=== PATIENT | female | born 1965 | race Caucasian/White ===

== ENCOUNTER 2016-08-30 13:19 | Observation (INO) ==
--- NOTE | 2016-08-30 13:25 | Emergency Department Note ---
Disposition Forms: ED Satisfaction Letter General Adult HPI - General Chief complaint: ED Syncope Stated complaint: Syncopal episode Time Seen by Provider: 08/30/16 13:21 Nursing Notes Reviewed: Yes Vital Signs Reviewed: Yes - Related Data Home Medications Medication Instructions Recorded Confirmed Alprazolam [Xanax 0.25 MG Tablet] 0.25 mg PO DAILY 01/27/16 01/27/16 Levothyroxine [Synthroid] 50 mcg PO 0630 01/27/16 01/27/16 Allergies Allergy/AdvReac Type Severity Reaction Status Date / Time No Known Allergies Allergy Verified 01/27/16 11:41 Past Medical History - Past Medical History Surgical history: Reports: appendectomy, breast surgery, , hysterectomy Psychiatric history: Reports: no psych history - Social History Smoking Status: Never smoker Smokeless Tobacco Status: No Alcohol use: Reports: none Drug use: Reports: none Medical Decision Making - MDM Narrative Medical decision making narrative: I examined this patient and my medical decision-making was reviewed with the GLUE MAKER/PA/Advanced Practice Nurse/Resident Physician. I agree with the documented findings, disposition and treatment plan as described except to the extent set forth below. Patient was seen on arrival with EMS by Dr. Yang and myself, I agree with his evaluation and management plan, supervising care the patient notes today. Patient presents from the [facility]. She was there and while she was sitting down had a syncopal episode. She complains some issues with memory. No focal deficits here. No cardiac problems. Blood pressure was high when medics saw her initially. She also says she might have some problems of the thyroid in the past but no history of syncope. She has no slurring of her speech no difficulty with moving she is alert to person place and time GCS 15. We will do a workup on her, and most likely need admission concern for cardiac or neurologic causes of the syncope.
--- NOTE | 2016-08-30 13:39 | Emergency Department Note ---
Disposition Clinical Impression: Syncope Qualifiers: Syncope type: unspecified Qualified Code(s): R55 - Syncope and collapse Disposition: Admitted As Inpatient Condition: Undetermined Referrals: Cheyenne Elizalde, BROOKE [Primary Care Provider] - Forms: ED Satisfaction Letter Time of Disposition: 15:12 Syncope HPI - General Chief Complaint: ED Syncope Stated Complaint: Syncopal episode Time Seen by Provider: 08/30/16 13:21 Source: patient, EMS Mode of arrival: EMS Limitations: no limitations Nursing Notes Reviewed: Yes Vital Signs Reviewed: Yes - History of Present Illness HPI Narrative: 51-year-old female with history of anxiety arrives to [facility] emergency department after sitting in a chair during a hair appointment and having a syncopal episode. The patient was noted to be out for roughly 1-2 minutes. No active seizure like activity noted at that time. The patient says that she immediately woke back up and remembers the entire event. The patient does state that prior to the episode she was having periods of not remembering her normal activities. The patient denies any chest pain, difficulty breathing , unilateral leg swelling, previous episodes of syncope. Patient denies any other prodromal symptoms. The patient currently takes herbal medications but is unsure which she normally takes which she states is not her baseline. She is answering all questions are purposely with a GCS of 15. Pt Subjective Complaint: loss of consciousness Onset (ago): Just PATROL MAN Number of episodes: 1 Duration: minutes(s) (1-2) Witnessed: yes - by bystander Context: at rest Injuries Sustained Associated with Event: none Current Symptoms: back to baseline History: none Treatments prior to arrival: none - Related Data Home Medications Medication Instructions Recorded Confirmed Alprazolam [Xanax 0.25 MG Tablet] 0.25 mg PO TID PRN 01/27/16 08/30/16 Levothyroxine [Synthroid] 50 mcg PO 0630 01/27/16 08/30/16 Allergies Allergy/AdvReac Type Severity Reaction Status Date / Time No Known Allergies Allergy Verified 01/27/16 11:41 Review of Systems: Review of Systems Constitutional: Denies fevers, chills, night sweats HEENT: Denies headache, blurry vision, eye pain, tinnitus, vertigo, sore throat , neck or thyroid masses Respiratory: Denies cough, sputum change, hemoptysis, dyspnea Cardiac: Denies chest pain, pressure, palpitations, dyspnea on exertion, pedal edema Gastrointestinal: Denies abdominal pain, changes in bowel habits, vomiting, nausea, Genitourinary: Denies dysuria, hematuria, nocturia, change in frequency, urgency, incontinence Neurologic: Denies headaches, dizziness, syncope, focalized weakness, paraesthesias, weakness Musculoskeletal: Denies back pain, joint pain, myalgias All systems ED: reviewed and negative except as stated. Past Medical History - Past Medical History Attestation: Yes The following information was validated with the patient. Source: patient Medical history: Reports: no medical history Surgical history: Reports: appendectomy, breast surgery, , hysterectomy Psychiatric history: Reports: no psych history - Social History Smoking Status: Never smoker Smokeless Tobacco Status: No Alcohol use: Reports: none Drug use: Reports: none Physical Exam Physical Exam: General: Patient alert, no acute distress, not lethargic HEENT: Head normal inspection, atraumatic, PERRLA, oropharynx grossly intact and normal, trachea midline, no JVD Chest: Nontraumatic, nontender, normal chest rise CV: RRR with non rubs, gallops, grade 2 holosystolic murmur noted Respiratory: Lungs clear to auscultation bilaterally, no rales, rhonchi, wheezes. Abdomen: Normal inspection, Normal bowel sounds 4 quadrants, nontender to palpation : Patient deferred Extremities: Normal inspection, full range of motion, appropriate pulses, capillary refill under 2 seconds Neurological: Patient alert and oriented 3, cranial nerves II through XII grossly intact, GCS 15, no neurologic deficits noted, muscle strength 5 out of 5 bilaterally in upper and lower extremities, no sensation deficits. Skin: Warm, intact, no rashes noted - General Limitations: no limitations General appearance: alert, in no apparent distress Course - Reevaluation(s) Reevaluation #1: Patient accepted by Cailin Jc NP Time: 15:12 Vital Signs Temperature 97.1 F L 08/30/16 13:22 Pulse Rate 79 08/30/16 13:22 Respiratory Rate 18 08/30/16 13:22 Blood Pressure 160/105 08/30/16 13:22 O2 Sat by Pulse Oximetry 100 08/30/16 13:22 Temperature 97.1 F L 08/30/16 13:22 Pulse Rate 75 08/30/16 14:33 Respiratory Rate 16 08/30/16 14:33 Blood Pressure 170/84 08/30/16 14:33 O2 Sat by Pulse Oximetry 97 08/30/16 14:33 Oxygen Delivery Oxygen Delivery Room Air Syncope - MDM Narrative Medical decision making narrative: Patient's workup here in the emergency department demonstrates no acute findings. Given the patient's lack of history of previous syncope, and syncope at rest today, we will admit the patient to the hospital. The patient agrees to the plan. The patient does have a holosystolic murmur noted that his grade 2 , and she states that she was never told she had a murmur in the past. The patient continues to deny any other complaints and has had no further symptoms or episodes similar to earlier today. Patient agrees to plan. - Lab Data Result diagrams: 08/30/16 14:23 08/30/16 14:23 Lab Results 08/30/16 08/30/16 08/30/16 Range/Units 14:23 14:23 14:23 WBC 6.9 (4.3-11.1) K/mcL RBC 5.00 H (3.82-4.97) M/mcL Hgb 13.4 (11.5-15.4) g/dL Hct 41.0 (35.3-44.9) % MCV 82.0 L (83.0-100.0) fL MCH 26.8 L (28.0-33.3) pg MCHC 32.7 (31.6-35.5) g/dL RDW 13.3 (11.5-14.5) % Plt Count 186 (140-400) K/mcL MPV 9.9 (9.4-12.4) fL Immature Gran % 0.3 (0-4) % Seg Neutrophils % 77.4 % Lymphocytes % 16.9 % Monocytes % 4.9 % Eosinophils % 0.4 % Basophils % 0.1 % Neutrophils # 5.4 (1.6-8.9) K/mcL Lymphocytes # 1.2 (0.6-4.6) K/mcL Monocytes # 0.3 (0.0-1.3) K/mcL Eosinophils # 0.0 (0.0-0.6) K/mcL Basophils # 0.0 (0.0-0.2) K/mcL Sodium 140 (136-145) mEq/L Potassium 3.9 (3.5-4.5) mEq/L Chloride 106 (98-109) mEq/L Carbon Dioxide 19 (19-29) mEq/L BUN 14 (7-20) mg/dL Creatinine 0.77 (0.57-1.11) mg/dL Est GFR ( Amer) > 60 (> 60) Est GFR (Non-Af Amer) > 60 (> 60) BUN/Creatinine Ratio 18 (6-26) Glucose 109 H (70-99) mg/dL Calculated Osmolality 291 (280-300) Calcium 9.1 (8.6-10.8) mg/dL Troponin I 0.01 (0-0.03) ng/mL - EKG Data EKG attestation: Yes I reviewed and interpreted this EKG. EKG results narrative: Heart rate 77 bpm. MT interval 141 ms. QTC 412 ms. Normal axis. Normal sinus rhythm. No ST elevation or ST depression noted. No previous EKG on record. No acute changes noted.
[2016-08-30 14:30] LABS: Basophils % 0.1 %; Eosinophils % 0.4 %; Hemoglobin 13.4 g/dL (11.5-15.4); Immature Granulocytes % 0.3 % (0-4); Lymphocytes # 1.2 K/mcL (0.6-4.6); Lymphocytes % 16.9 %; Mean Corpuscular HGB Conc 32.7 g/dL (31.6-35.5); Mean Corpuscular Hemoglobin 26.8 pg (28.0-33.3); Mean Platelet Volume 9.9 fL (9.4-12.4); Monocytes # 0.3 K/mcL (0.0-1.3); Monocytes % 4.9 %; Neutrophils # 5.4 K/mcL (1.6-8.9); Platelet Count 186 K/mcL (140-400); Red Cell Distribution Width 13.3 % (11.5-14.5); Segmented Neutrophils % 77.4 %
[2016-08-30 14:43] LABS: BUN/Creatinine Ratio 18 (6-26); Blood Urea Nitrogen 14 mg/dL (7-20); Calcium 9.1 mg/dL (8.6-10.8); Carbon Dioxide 19 mEq/L (19-29); Chloride 106 mEq/L (98-109); Glucose 109 mg/dL (70-99); Osmolality,Calculated 291 (280-300); Potassium 3.9 mEq/L (3.5-4.5); Sodium 140 mEq/L (136-145); eGFR For African Americans > 60 (> 60); eGFR For Non-African Americans > 60 (> 60)
[2016-08-30] MEDS ORDERED: Naloxone 0.4 MG/ML INJ IVP PRN (16:32)
[2016-08-30] MEDS ORDERED: Acetaminophen 325 MG TABLET PO PRN (16:32)
--- NOTE | 2016-08-30 16:45 | Internal Med History&Physical ---
<Alfredo Cazares - Last Filed: 08/30/16 17:46> Date of Encounter: 08/30/16 Time of Encounter: 16:37 Assessment and Plan (1) Syncope Current visit: Yes Status: Acute Patient is a 51 year old female with history of varicose veins, hypothyroidism, and anxiety without known prior episodes of presncope/syncope who was brought in via EMS with syncopal episode of a few minutes duration that was witnessed and preceded by some difficulties with memory and dizziness. EKG revealed normal sinus rhythm, no st elevations or depressions, no t wave inversions. CXR revealed no acute cardiopulmonary processes. CT Head revealed no acute intracranial abnormalities. Physical exam by ED physicians revealed no neurological abnormal findings. CBC was essentially normal, Electrolytes were essentially normal, Troponin was 0.01 negative. Neuro exam normal Syncopal of unknown etiology. Differentials include, but not limited to TIA, medication misuse (Xanax), cardiac etiology Echocardiogram Carotid duplex imaging orthostatic vitals Neuro checks q2h Urine Drug Screen Regular diet. Hold home Xanax. May consider Brain MRI if neuro signs/symptoms. Qualifiers: Syncope type: unspecified Qualified Code(s): R55 - Syncope and collapse (2) Memory change Current visit: Yes Status: Chronic Patient reports memory issues since traumatic event in January 2015. Recommend Counseling and Neurocognitive evaluation as outpatient. (3) Hypertension Current visit: Yes Status: Chronic Patient with history of hypertension had elevated bp upon arrival to the ED, currently not on medication. Bp upon arrival was 160/105, pulse 79. Repeat bp was 150/76, pulse 72. PO hydralazine prn for elevated bp with systolic >160. Continue monitoring vitals. May consider starting bp medications for chronic disease management. Qualifiers: Hypertension type: essential hypertension Qualified Code(s): I10 - Essential (primary) hypertension (4) Anxiety Current visit: Yes Status: Chronic Hold Xanax Patient reports taking daily Xanax and extra dose as needed. OARRS reviewed and appropriate. Last refilled 07/17/16, tid prn. Prior refill 05/28/16. (5) Hypothyroidism Current visit: Yes Status: Chronic Continue home medication for chronic disease management. 25mcg levothyroxine qd Labs: TSH, T4, T3. Qualifiers: Hypothyroidism type: unspecified Qualified Code(s): E03.9 - Hypothyroidism , unspecified (6) DVT prophylaxis Current visit: Yes Status: Acute Heparin for dvt ppx. Internal Medicine - H&P: HPI Chief complaint: Syncope Admitted From: Emergency Dept History of present illness: Ms. Trejo is a 51 year old female with history of varicose veins, hypothyroidism , and anxiety who was brought in via EMS to [facility] ED after syncopal episode. Patient reports that she sitting down getting her hair cut when she started developing some issues remembering things and then developed some significant dizziness. Patient reports that she was told she passed out for 2-3 minutes during which time EMS was called. Patient remembers waking up to her hairdresser trying to wake her up. EMS reports no facial droops, slurring, or extremity weakness on initial exam, though bp was elevated. Patient denies previous episodes of syncope or presyncope. Denies poor hydration. Patient reports that she had continue troubles getting the right words to say and troubles remembering things until she arrived to the ED. Patient denies fevers , chills, sweats, headaches, changes in vision or hearing, nausea, vomiting, chest pain/pressure/heaviness, shortness of breath, abdominal pain, changes in bowels or bladder, weakness, or loss of sensation. Patient currently taking Xanax for anxiety (OARRS reviewed and appropriate), Levothyroxine 25mcg qd, and multivitamin herbal supplement. Patient is otherwise health and reports she plays tennis regularly and denies tobacco, alcohol, or illicit drug use. Past Med Surg Social Fam HX - Past Medical History Medical history: thyroid disease (hypo), other (varicose veins) Psychiatric history: anxiety - Past Surgical History Surgical History: appendectomy, breast surgery, , hysterectomy - Social History Smoking Status: Never smoker Smokeless Tobacco Status: No Alcohol use: none Drug use: none Current living situation: Home - Independent Activity Level: Independent ambulation Recent Out of Country Travel Within the Last 8 Weeks: No Exposure or Possible Exposure to Illness During Travel: No - Family History Mother Living Status: Hx Family Cardiac Disorders: No Hx Family Respiratory Disorders: No Hx Family Cancer: No Hx Family GI Disorders: No Hx Family Genitourinary Disorders: No Hx Family Endocrine Disorder: No Hx Family Musculoskeletal Disorders: No Hx Family Neuromuscular Disorders: No Hx Family Neurologic Disorders: No Hx Family HEENT Disorders: No Hx Family Autoimmune Disorders: No Hx Family Reproductive Disorders: No Hx Family Psychosocial Disorders: No Hx Family Medical Disorders: No Father Living Status: Hx Family Cardiac Disorders: No Hx Family Respiratory Disorders: No Hx Family Cancer: No Hx Family GI Disorders: No Hx Family Genitourinary Disorders: No Hx Family Endocrine Disorder: No Hx Family Musculoskeletal Disorders: No Hx Family Neuromuscular Disorders: No Hx Family Neurologic Disorders: No Hx Family HEENT Disorders: No Hx Family Autoimmune Disorders: No Hx Family Reproductive Disorders: No Hx Family Psychosocial Disorders: No Hx Family Medical Disorders: No Grandfather Living Status: Hx Family Neurologic Disorders: Yes (dementia) Internal Medicine - H&P: Meds Alprazolam [Xanax 0.25 MG Tablet] 0.25 mg PO TID PRN 01/27/16 [History] Levothyroxine [Synthroid] 50 mcg PO 0630 01/27/16 [History] Allergies No Known Allergies Allergy (Verified 01/27/16 11:41) All Systems PM: A 10-system review of systems was performed and is negative for pertinent findings except as documented above in the HPI. - Constitutional Constitutional: as per HPI, no chills, no fever(s), no falls, no lethargy, no weakness - EENT Eyes: as per HPI Ears: as per HPI Nose, mouth and throat: as per HPI, no dry mouth, no dysphagia, no neck pain, no sore throat - Cardiovascular Cardiovascular ROS IM: as per HPI, no chest pain, no diaphoresis, no dyspnea, no edema, no irregular heart rhythm, no lightheadedness, no orthopnea, no palpitations, no syncope - Respiratory Respiratory: as per HPI, no cough, no dyspnea, no pain on inspiration - Gastrointestinal Gastrointestinal: as per HPI, no abdominal pain, no change in bowel habits, no constipation, no diarrhea, no dysphagia, no heartburn, no nausea, no vomiting - Genitourinary Genitourinary: as per HPI, no dysuria, no flank pain - Musculoskeletal Musculoskeletal ROS IM: as per HPI, no back pain, no neck pain, no numbness, no stiffness, no tingling - Integumentary Integumentary IM: as per HPI, no new lesions, no rash, no unusual bruising - Neurological Neurological ROS: as per HPI, dizziness, memory loss, no abnormal gait, no abnormal hearing, no abnormal speech, no disequilibrium, no focal weakness, no frequent falls, no headache(s), no lack of coordination, no loss of vision, no numbness, no tingling, no weakness - Psychiatric Psychiatric: as per HPI, anxiety - Endocrine Endocrine IM: as per HPI, no fatigue, no flushing, no polydipsia, no polyuria - Hematologic/Lymphatic Hematologic/Lymphatic: as per HPI, no easy bleeding, no easy bruising - Allergic/Immunologic Allergic/Immunologic: as per HPI - Constitutional Vitals: Temp Pulse Resp BP Pulse Ox 97.1 F L 75 16 168/94 97 08/30/16 13:22 08/30/16 14:33 08/30/16 16:13 08/30/16 16:13 08/30/16 14:33 General appearance: Present: A&O X 3, pleasant, no acute distress, answers questions appropriately - Head Head exam: Present: atraumatic, normal inspection, normocephalic - Eye Eye exam: Present: EOMI, normal appearance, PERRL - ENT ENT exam: Present: mucous membranes moist, normal exam, normal external ear exam , normal oropharynx - Neck Neck exam general surgery: Present: full ROM, normal inspection, supple, trachea midline. Absent: tenderness - Respiratory Respiratory exam: Present: CTAB. Absent: rales, rhonchi, wheezes - Cardiovascular Cardiovascular exam: Present: RRR, +S1, +S2. Absent: diastolic murmur, JVD, systolic murmur - GI/Abdominal GI/Abdominal exam: Present: normal bowel sounds, soft. Absent: distended, guarding, tenderness - Extremities Exam Extremities exam: Present: full ROM, normal capillary refill, normal inspection , warm, radial pulses palpable and symetrical. Absent: pedal edema, tenderness - Neurological Exam Neurological exam: Present: alert, CN II-XII intact, normal gait, oriented X3, reflexes normal, no focal deficits, strengths equal and symetr throughout. Absent: motor sensory deficit, facial droop, speech deficit - Expanded Neurological Exam Neurological exam expanded: Absent: expressive aphasia, receptive aphasia Patient oriented to: Present: person, place, time Speech: Present: fluid speech Cranial Nerves: EOM's intact PM: Normal Cerebellar function: finger to nose: Normal, heel to brooke: Normal, Romberg: Normal Sensory exam: LE 2 point discrimination: Normal, lower extremity light touch: Normal, UE 2 point discrimination: Normal, upper extremity light touch: Normal Neuro motor strength exam: LUE: 5, RUE: 5, LLE: 5, RLE: 5 DTR: bicep (L): 2+, bicep (R): 2+, patellar (L): 2+, patellar (R): 2+, tricep (L ): 2+, tricep (R): 2+ Coma Scale Eye Opening: Spontaneous Coma Scale Motor Response: Obeys Commands Coma Scale Verbal Response: Oriented Coma Scale Total: 15 - Psychiatric Psychiatric exam: Present: normal affect, normal mood - Skin Skin exam: Present: dry, intact, normal color, warm. Absent: diaphoretic, erythema, pallor Internal Med - H&P Results - Labs CBC & Chem 7: 08/30/16 14:23 08/30/16 14:23 <Ayala Martinez - Last Filed: 08/30/16 18:55> Internal Medicine - H&P: HPI History of present illness: Ms. Trejo is a 51 year old female All Systems PM: A 10-system review of systems was performed and is negative for pertinent findings except as documented above in the HPI. - Constitutional Vitals: Temp Pulse Resp BP Pulse Ox 99.8 F H 72 14 150/76 98 08/30/16 16:48 08/30/16 16:48 08/30/16 16:48 08/30/16 16:48 08/30/16 16:48 Internal Med - H&P Results - Labs CBC & Chem 7: 08/30/16 14:23 08/30/16 14:23 - Attending Attestation I examined this patient and reviewed laboratory, imaging and all diagnostic data. My medical decision-making was reviewed with Alfredo Reveles - Resident Physician. I agree with the documented findings, disposition and treatment plan as described above.
[2016-08-30 17:13] LABS: Thyroid Stimulating Hormone 5.095 mcIU/mL (0.350-4.840); Triiodothyronine (T3) Free 3.45 pg/mL (1.71-3.71)
[2016-08-30] MEDS: *HR* Heparin 5,000 UNIT/ML VIAL SQ SCH (20:14)
[2016-08-30] MEDS: hydrALAZINE 25 MG TABLET PO SCH (20:15)
[2016-08-31 00:01] LABS: Amphetamine Screen,Urine Negative ng/mL (Cutoff=1000); Barbiturate Screen,Urine Negative ng/mL (Cutoff=200); Benzodiazepines Screen,Urine Positive ng/mL (Cutoff=200); Cannabinoid Screen,Urine Negative ng/mL (Cutoff = 50); Cocaine Screen,Urine Negative ng/mL (Cutoff= 300); Opiate Screen,Urine Negative ng/mL (Cutoff=300); Phencyclidine Screen,Urine Negative ng/mL (Cutoff=25)
[2016-08-31 00:14] LABS: Bilirubin,Urine Negative (Negative); Blood,Urine Negative (Negative); Clarity,Urine Clear (Clear); Color,Urine Yellow (Yellow); Glucose,Urine (UA) Normal (Normal); Ketones,Urine Trace mg/dL (Negative); Leukocyte Esterase,Urine Negative (Negative); Nitrite,Urine Negative (Negative); Protein,Urine Negative (Neg-Trace); Specific Gravity,Urine 1.027 (1.010-1.025); Urobilinogen,Urine Normal (Normal)
[2016-08-31] MEDS: hydrALAZINE 25 MG TABLET PO SCH ×4 (00:26→18:40)
[2016-08-31 03:54] LABS: Eosinophils % 0.2 %; Hematocrit 41.5 % (35.3-44.9); Hemoglobin 13.4 g/dL (11.5-15.4); Immature Granulocytes % 0.2 % (0-4); Lymphocytes # 1.6 K/mcL (0.6-4.6); Lymphocytes % 32.3 %; Mean Corpuscular HGB Conc 32.3 g/dL (31.6-35.5); Mean Corpuscular Hemoglobin 26.3 pg (28.0-33.3); Mean Corpuscular Volume 81.4 fL (83.0-100.0); Mean Platelet Volume 10.1 fL (9.4-12.4); Monocytes # 0.4 K/mcL (0.0-1.3); Monocytes % 7.6 %; Platelet Count 225 K/mcL (140-400); Red Cell Distribution Width 13.5 % (11.5-14.5); Segmented Neutrophils % 59.7 %
[2016-08-31 04:00] LABS: INR 1.2; Prothrombin Time 13.3 Seconds (9.4-12.1)
[2016-08-31 04:02] LABS: Activated Partial Thrombo Time 32.2 Seconds (26.0-36.0)
[2016-08-31 04:21] LABS: Alanine Aminotransferase 14 Units/L (0-55); Albumin 3.9 g/dL (3.5-5.0); Albumin/Globulin Ratio 1.1 (1.1-2.2); Alkaline Phosphatase 82 Units/L (38-126); Aspartate Amino Transferase 14 Units/L (5-34); BUN/Creatinine Ratio 17 (6-26); Bilirubin,Total 0.3 mg/dL (0.2-1.2); Blood Urea Nitrogen 13 mg/dL (7-20); Calcium 9.5 mg/dL (8.6-10.8); Carbon Dioxide 25 mEq/L (19-29); Chloride 107 mEq/L (98-109); Globulin 3.6 g/dL (2.4-3.5); Glucose 89 mg/dL (70-99); Magnesium 2.2 mg/dL (1.6-2.6); Osmolality,Calculated 296 (280-300); Potassium 3.9 mEq/L (3.5-4.5); Sodium 143 mEq/L (136-145); Total Protein 7.5 g/dL (6.0-8.3); eGFR For African Americans > 60 (> 60); eGFR For Non-African Americans > 60 (> 60)
[2016-08-31] MEDS: *HR* Heparin 5,000 UNIT/ML VIAL SQ SCH ×2 (06:13→18:40)
--- NOTE | 2016-08-31 06:30 | Electrocardiograph Report ---
[facility] Test Date: 2016-08-30 Pat Name: Ashley Trejo Department: [id number] Room: 3B21 Gender: F Miller First: RACHEL : 1965 Requested By: Lane Skinner Order Number: [id number] Reading MD: Edgar Onofre DO Measurements Intervals Donald Rate: 77 P: 60 [place]: 141 QRS: -5 QRSD: 90 T: 19 QT: 381 QTc: 412 Interpretive Statements SINUS RHYTHM NONSPECIFIC T-WAVE ABNORMALITY Electronically Signed On 08-31-2016 6:28:54 EDT by Edgar Onofre DO
[2016-08-31] MEDS ORDERED: ALPRAZolam 0.25 MG TABLET PO ONE (06:32)
--- NOTE | 2016-08-31 08:26 | Internal Med Progress Note ---
<Alfredo Cazares - Last Filed: 08/31/16 15:09> Date of Encounter: 08/31/16 Time of Encounter: 08:26 - Assessment and plan (1) Syncope Current Visit: Yes Status: Acute Assessment and plan: Patient is a 51 year old female with history of varicose veins, hypothyroidism, and anxiety without known prior episodes of presncope/syncope who was brought in via EMS with syncopal episode of a few minutes duration that was witnessed and preceded by some difficulties with memory and dizziness. Patient denies dizziness or syncopal episodes overnight. EKG revealed normal sinus rhythm, no st elevations or depressions, no t wave inversions. CXR revealed no acute cardiopulmonary processes. CT Head revealed no acute intracranial abnormalities. Physical exam by ED physicians revealed no neurological abnormal findings. CBC was essentially normal, Electrolytes were essentially normal, Troponin was 0.01 negative, UDS positive for benzo (consistent with home med) Neuro exam normal TSH 5.095, Free T4 normal 1.17, Free T3 normal 3.45 Syncopal of unknown etiology. Differentials include, but not limited to TIA, medication misuse (Xanax), cardiac etiology, medication side effect (herbal supplements), anxiety Pending Echocardiogram Pending Carotid duplex imaging orthostatic vitals Regular diet. Hold home Xanax. May consider Brain MRI if neuro signs/symptoms. Qualifiers: Syncope type: unspecified Qualified Code(s): R55 - Syncope and collapse (2) Memory change Current Visit: Yes Status: Chronic Assessment and plan: Patient reports memory issues since traumatic event in January 2015. Recommend Counseling and Neurocognitive evaluation as outpatient (3) Hypertension Current Visit: Yes Status: Chronic Assessment and plan: Patient with history of hypertension had elevated bp upon arrival to the ED, currently not on medication. Bp controlled overnight, MAR reveals no administration of hydralazine. PO hydralazine prn for elevated bp with systolic >160. Continue monitoring vitals. Qualifiers: Hypertension type: essential hypertension Qualified Code(s): I10 - Essential (primary) hypertension (4) Anxiety Current Visit: Yes Status: Chronic Assessment and plan: Hold Xanax Patient reports taking daily Xanax and extra dose as needed, premedicate prior to large crowds and reports three pills prior to any airtravel. OARRS reviewed and appropriate. Last refilled 02/07/17, tid prn. Prior refill 05/28/16. (5) Hypothyroidism Current Visit: Yes Status: Chronic Assessment and plan: Continue home medication for chronic disease management. 25mcg levothyroxine qd TSH 5.095 (elevated), Free T4 1.17 (normal), Free T3 3.45 (normal) Qualifiers: Hypothyroidism type: unspecified Qualified Code(s): E03.9 - Hypothyroidism , unspecified (6) DVT prophylaxis Current Visit: Yes Status: Acute Assessment and plan: Heparin for dvt ppx. - Subjective Interval history: Patient reports that did well overnight without new complaints. Addition to HPI : Patient reports she has had two additional episodes of feeling ill, sick, dizzy, and almost about to pass out while sitting on the couch. She denies any chest pain or palpitations during those episodes. The patient has been taking tumeric and herbal multivitamin supplement for the past couple months, and reports since has had these episodes. Patient to have family member bring in the medication so we can review it. Patient denies fevers, chills, sweats, changes in vision or hearing, headaches, nausea, vomiting, chest pain, shortness of breath, abdominal pain, changes in bowels or bladder, weakness, or loss of sensation. - Constitutional Vitals: Temp Pulse Resp BP Pulse Ox 98.0 F 62 14 137/85 96 08/31/16 05:07 08/31/16 05:07 08/31/16 05:07 08/31/16 05:07 08/31/16 05:07 General appearance: Present: A&O X 3, pleasant, no acute distress, answers questions appropriately - Head Head exam: Present: atraumatic, normal inspection, normocephalic - Eye Eye exam: Present: normal appearance - ENT ENT exam: Present: mucous membranes moist, normal exam, normal external ear exam , normal oropharynx - Neck Neck exam general surgery: Present: normal inspection, supple, trachea midline - Respiratory Respiratory exam: Present: CTAB. Absent: rales, rhonchi, wheezes - Cardiovascular Cardiovascular exam: Present: RRR, +S1, +S2. Absent: diastolic murmur, JVD, systolic murmur - GI/Abdominal GI/Abdominal exam: Present: normal bowel sounds, soft. Absent: tenderness - Extremities Exam Extremities exam: Present: full ROM, normal inspection, warm. Absent: calf tenderness, pedal edema, tenderness - Neurological Exam Neurological exam: Present: alert, CN II-XII intact, normal gait, oriented X3, reflexes normal, no focal deficits, strengths equal and symetr throughout. Absent: motor sensory deficit, facial droop, speech deficit - Psychiatric Psychiatric exam: Present: anxious (anxious mood, tearful at time), normal affect - Skin Skin exam: Present: dry, intact, normal color, warm. Absent: diaphoretic, erythema, pallor Internal Medicine: Result - Labs CBC & Chem 7: 08/31/16 02:48 08/31/16 02:48 Labs: Short CBC 08/31/16 Range/Units 02:48 WBC 5.0 (4.3-11.1) K/mcL Hgb 13.4 (11.5-15.4) g/dL Hct 41.5 (35.3-44.9) % Plt Count 225 (140-400) K/mcL Neutrophils # 3.0 (1.6-8.9) K/mcL BMP 08/31/16 02:48 Sodium 143 Potassium 3.9 Chloride 107 Carbon Dioxide 25 BUN 13 Creatinine 0.76 Glucose 89 Calcium 9.5 Liver Function 08/31/16 Range/Units 02:48 Total Bilirubin 0.3 (0.2-1.2) mg/dL AST 14 (5-34) Units/L ALT 14 (0-55) Units/L Alkaline Phosphatase 82 (38-126) Units/L Albumin 3.9 (3.5-5.0) g/dL Urine 08/30/16 Range/Units 23:40 Urine Color Yellow (Yellow) Urine Clarity Clear (Clear) Urine pH 6.0 (5.0-8.0) pH Units Ur Specific [place] 1.027 H (1.010-1.025) Urine Protein Negative (Neg-Trace) mg/dL Urine Glucose (UA) Normal (Normal) mg/dL - ABG Interpretation ABG results: PT/INR, D-dimer PT 13.3 Seconds (9.4-12.1) H 08/31/16 02:48 Consult Discharge Plan - Plan Instructions: Syncope (DC), Hypothyroidism (DC), Anxiety (DC) Additional Instructions: Follow up with your primary care physician regarding this hospital stay in the next 7-10 days. Because you reported that you had multiple similar episodes, particularly after starting your Herbal multi supplement, you may want to discontinue that multivitamin for a period of time to determine if symptoms resolve. Referrals: Cheyenne Elizalde, RELIGION PROFESSOR [Primary Care Provider] - <JuanAyala E - Last Filed: 08/31/16 19:19> - Constitutional Vitals: Temp Pulse Resp BP Pulse Ox 98.3 F 79 14 137/81 98 08/31/16 15:03 08/31/16 15:03 08/31/16 15:03 08/31/16 15:03 08/31/16 15:03 Internal Medicine: Result - Labs CBC & Chem 7: 08/31/16 02:48 08/31/16 02:48 Labs: Short CBC 08/31/16 Range/Units 02:48 WBC 5.0 (4.3-11.1) K/mcL Hgb 13.4 (11.5-15.4) g/dL Hct 41.5 (35.3-44.9) % Plt Count 225 (140-400) K/mcL Neutrophils # 3.0 (1.6-8.9) K/mcL BMP 08/31/16 02:48 Sodium 143 Potassium 3.9 Chloride 107 Carbon Dioxide 25 BUN 13 Creatinine 0.76 Glucose 89 Calcium 9.5 Liver Function 08/31/16 Range/Units 02:48 Total Bilirubin 0.3 (0.2-1.2) mg/dL AST 14 (5-34) Units/L ALT 14 (0-55) Units/L Alkaline Phosphatase 82 (38-126) Units/L Albumin 3.9 (3.5-5.0) g/dL Urine 08/30/16 Range/Units 23:40 Urine Color Yellow (Yellow) Urine Clarity Clear (Clear) Urine pH 6.0 (5.0-8.0) pH Units Ur Specific [place] 1.027 H (1.010-1.025) Urine Protein Negative (Neg-Trace) mg/dL Urine Glucose (UA) Normal (Normal) mg/dL - ABG Interpretation ABG results: PT/INR, D-dimer PT 13.3 Seconds (9.4-12.1) H 08/31/16 02:48 - Attending Attestation I examined this patient and reviewed laboratory, imaging and all diagnostic data. My medical decision-making was reviewed with Alfredo Reveles - Resident Physician. I agree with the documented findings, disposition and treatment plan as described above.
--- NOTE | 2016-08-31 18:23 | ECHO - Doppler Report ---
Echo with Saline Contrast Name: Ashley Trejo Date of Study: 08/31/2016 Date: 1965 Ht: 65.0 in Medical Record#: [id number] Age: 51 Wt: 148.0 lb Gender: Female BSA: 1.74 Order #: [id number] Location: [facility] Room #: [id number] Reading Physician: Wesley Feliciano DO, NADIA BLANDON FASNC [employer]evelopment Specialist: Lauren Mckinney Ordering Physician: Alfredo Cazares DO Primary Physician: Cheyenne Elizalde CNP Indications: Possible TIA Impressions: LVEF 60-65%. Normal LV chamber size, wall thickness and function. Mild left ventricular diastolic dysfunction. Normal right ventricular structure and function. No evidence of PFO with agitated saline contrast. No evidence of pulmonary hypertension. No significant valvular dysfunction. Left Ventricular Wall Motion: Rest Echo Findings All wall segments showed normal motion. Findings: Study Quality * Technically adequate exam. ECG Findings * Normal sinus rhythm. Left Ventricle * LVEF 60-65%. * Normal LV chamber size, wall thickness and function. * Mild left ventricular diastolic dysfunction. Right Ventricle * Normal right ventricular structure and function. Left Atrium * Mildly dilated left atrium. Right Atrium * Mildly dilated right atrium. Interatrial Septum * No evidence of PFO with agitated saline contrast. Aortic Valve * Trileaflet aortic valve with normal function. * No aortic regurgitation. * No aortic stenosis. Mitral Valve * Normal mitral valve structure and function. * No mitral regurgitation. * No mitral stenosis. Tricuspid Valve * Normal tricuspid valve structure and function. * Trace tricuspid regurgitation. * No evidence of pulmonary hypertension. Pulmonic Valve * Normal pulmonic valve structure and function. * Trace pulmonic regurgitation. Aorta * Normally sized aortic root. Pericardium * The pericardium appears normal. IVC * Normal IVC dimensions and inspiratory collapse. Pulmonary Artery * Normal visualized portions of the main pulmonary artery. History Hypertension Contrast: Agitated saline 20 ml. Measurements: BP: 137/ 77 2D Normal Values RVIDd: 2.85 cm <2.7 cm IVSd: 1.20 cm 0.6 - 1.0 cm LVIDd: 4.35 cm 3.7 - 5.6 cm LVPWd: 1.10 cm 0.6 - 1.1 cm LVIDs: 2.80 cm 1.5 - 3.6 cm AO: 2.65 cm < 4.0 cm LA: 4.10 cm 2.0 - 4.0cm %FS: 36.40 cm >25 % LA volume: 59 Mitral Valve Peak E:.59 m/sec Peak A:.62 m/sec E/A Ratio:0.9 Peak E' Lat Jake:12.6 cm/s Peak E' Med Jake:5.36 cm/s E/E' Lat Ratio:4.7 E/E' Med Ratio:11 Tricuspid Valve TV Regurg Peak Grad: 13.00mmHg TV Regurg Peak Jake: 1.79m/sec Updated by Wesley Feliciano DO, BARBER, CHRISTIANO ZUNIGA on 08/31/2016 6:15:32 PM electronically signed on 08/31/2016 6:16:38 PM with status of Final Wall Motion [place]: 1=Normal, 2=Hypokinesis, 3=Akinesis, 4=Dyskinesis, 5=Aneurysmal, 6=Hyperkinetic, X=Not Visualized (Blank)=Missing
--- NOTE | 2016-08-31 18:52 | Discharge Summary ---
<Alfredo Cazares - Last Filed: 08/31/16 19:08> Date of Encounter: 08/31/16 Time of Encounter: 18:48 - Discharge Diagnosis (1) Syncope Priority: Primary Status: Acute Comments: Patient is a 51 year old female with history of varicose veins, hypothyroidism, and anxiety without known prior episodes of presyncope/syncope who was brought in via EMS with syncopal episode of a few minutes duration that was witnessed and preceded by some difficulties with memory and dizziness. Patient denies dizziness or syncopal episodes overnight. EKG revealed normal sinus rhythm, no st elevations or depressions, no t wave inversions. CXR revealed no acute cardiopulmonary processes. CT Head revealed no acute intracranial abnormalities. Physical exam by ED physicians revealed no neurological abnormal findings. CBC was essentially normal, Electrolytes were essentially normal, Troponin was 0.01 negative, UDS positive for benzo (consistent with home med) Neuro exam normal TSH 5.095, Free T4 normal 1.17, Free T3 normal 3.45 Echo revealed LVEF 60-65%, mild left ventricular diastolic dysfunction, no valvular dysfunction Carotid duplex was within normal limits bilaterally Syncopal of unknown etiology. Differentials include, but not limited to TIA, medication misuse (Xanax), cardiac arrhythmia, medication side effect (herbal supplements), anxiety Held home Xanax. May consider Brain MRI if neuro signs/symptoms. Consider tapering off Xanax for anxiety, consider nonbenzo medications for anxiety control Consider event monitor if suspect cardiac arrhythmias Advised patient to discontinue Herbal supplement at this time to determine if symptoms resolve. Advised patient to consider counseling. Qualifiers: Syncope type: unspecified Qualified Code(s): R55 - Syncope and collapse (2) Memory change Priority: Secondary Status: Chronic Comments: Patient reports memory issues since traumatic event in January 2015. Recommend Counseling and Neurocognitive evaluation as outpatient (3) Hypertension Priority: Secondary Status: Chronic Comments: Patient with history of hypertension had elevated bp upon arrival to the ED, currently not on medication. Bp controlled overnight, MAR reveals no administration of hydralazine. PO hydralazine prn for elevated bp with systolic >160. Continue monitoring vitals. Qualifiers: Hypertension type: essential hypertension Qualified Code(s): I10 - Essential (primary) hypertension (4) Anxiety Priority: Secondary Status: Chronic Comments: Held Xanax Patient reports taking daily Xanax and extra dose as needed, premedicate prior to large crowds and reports three pills prior to any airtravel. OARRS reviewed and appropriate. Last refilled 07/17/16, tid prn. Prior refill 05/28/16. (5) Hypothyroidism Priority: Secondary Status: Chronic Comments: Continue home medication for chronic disease management. 25mcg levothyroxine qd TSH 5.095 (elevated), Free T4 1.17 (normal), Free T3 3.45 (normal) Qualifiers: Hypothyroidism type: unspecified Qualified Code(s): E03.9 - Hypothyroidism , unspecified - Discharge Medications Home Medications: Alprazolam [Xanax 0.25 MG Tablet] 0.25 mg PO TID PRN 01/27/16 [History] Levothyroxine [Synthroid] 50 mcg PO 0630 01/27/16 [History] Allergies/Adverse Reactions: Allergies No Known Allergies Allergy (Verified 01/27/16 11:41) Procedures/tests Complete & Pending: Procedures Performed prior 72 hours Category Date Time Status EV carotid duplex imaging BI Routine Y 08/31/16 16:34 Completed EV echocardiogram Routine Y 08/31/16 16:34 Completed Date of admission: 08/30/16 15:27 Primary care physician: Cheyenne Elizalde CNP Discharging clinician: Ayala Martinez (Alfredo Cazares) Anticipated date of discharge: 08/31/16 - Patient Status Disposition: Home, Self-Care Condition: Good Functional capacity at discharge: independent ambulation Overall status at discharge: patient is progressing back to baseline - Discharge Instructions Instructions: Syncope (DC), Hypothyroidism (DC), Anxiety (DC) Follow Up With: Cheyenne Elizalde CNP [Primary Care Provider] - Additional Instructions: Follow up with your primary care physician regarding this hospital stay in the next 7-10 days. Because you reported that you had multiple similar episodes, particularly after starting your Herbal multi supplement, you may want to discontinue that multivitamin for a period of time to determine if symptoms resolve. - Diet and Activity Activity: resume usual activities as tolerated Diet: advance to your usual diet Interval History: Patient reports that did well overnight without new complaints. Addition to HPI : Patient reports she has had two additional episodes of feeling ill, sick, dizzy, and almost about to pass out while sitting on the couch. She denies any chest pain or palpitations during those episodes. The patient has been taking tumeric and herbal multivitamin supplement for the past couple months, and reports since has had these episodes. Patient to have family member bring in the medication so we can review it. Patient denies fevers, chills, sweats, changes in vision or hearing, headaches, nausea, vomiting, chest pain, shortness of breath, abdominal pain, changes in bowels or bladder, weakness, or loss of sensation. Herbal supplement: [employer], More than a multiple with energy essentials , vitamin E 400 IU Hospital course: Ms. Trejo is a 51 year old female with history of varicose veins, hypothyroidism , and anxiety who was brought in via EMS to [facility] ED after syncopal episode. Patient reports that she was sitting down getting her hair cut when she started developing some issues remembering things and then developed some significant dizziness. Patient reports that she was told she passed out for 2-3 minutes during which time EMS was called. Patient remembers waking up to her hairdresser trying to wake her up. EMS reports no facial droops, slurring, or extremity weakness on initial exam, though bp was elevated. Patient denies previous episodes of syncope or presyncope. Denies poor hydration. Patient reports that she had continue troubles getting the right words to say and troubles remembering things until she arrived to the ED. Patient denies fevers , chills, sweats, headaches, changes in vision or hearing, nausea, vomiting, chest pain/pressure/heaviness, shortness of breath, abdominal pain, changes in bowels or bladder, weakness, or loss of sensation. Patient reports that she has had about two separate episodes at rest where she developed similar symptoms and presyncope. Patient currently taking Xanax for anxiety (OARRS reviewed and appropriate), Levothyroxine 25mcg qd, and multivitamin herbal supplement. Patient taking [employer], More than a multiple with energy essentials and vit E 400 IU. Patient is otherwise health and reports she plays tennis regularly and denies tobacco, alcohol, or illicit drug use. EKG revealed normal sinus rhythm, no st elevations or depressions, no t wave inversions. CXR revealed no acute cardiopulmonary processes. CT Head revealed no acute intracranial abnormalities. Physical exam by ED physicians revealed no neurological abnormal findings. CBC was essentially normal, Electrolytes were essentially normal, Troponin was 0.01 negative. Neuro exam normal. UDS was consistent with home medication Xanax. Echo revealed LVEF 60-65%, mild left ventricular diastolic dysfunction, no valvular dysfunction. Carotid duplex was within normal limits bilaterally. Work up was negative. Patient did well overnight without syncopal episodes or other symptoms. Patient to be discharged home to follow up with PCP in the next 7-10 days regarding this hospital stay. - Time Spent with Patient Total time spent providing and/or coordinating discharge services: Less than 30 minutes - Constitutional Vitals: Temp Pulse Resp BP Pulse Ox 98.3 F 79 14 137/81 98 08/31/16 15:03 08/31/16 15:03 08/31/16 15:03 08/31/16 15:03 08/31/16 15:03 General appearance: Present: A&O X 3, pleasant, no acute distress, answers questions appropriately - Head Head exam: Present: atraumatic, normal inspection, normocephalic - Eye Eye exam: Present: EOMI, normal appearance, PERRL - ENT ENT exam: Present: mucous membranes moist, normal exam, normal external ear exam , normal oropharynx - Neck Neck exam general surgery: Present: full ROM, normal inspection, supple, trachea midline. Absent: tenderness - Respiratory Respiratory exam: Present: CTAB. Absent: rales, rhonchi, wheezes - Cardiovascular Cardiovascular exam: Present: RRR, +S1, +S2. Absent: diastolic murmur, JVD, systolic murmur - GI/Abdominal GI/Abdominal exam: Present: normal bowel sounds, soft. Absent: distended, guarding, tenderness - Extremities Exam Extremities exam: Present: full ROM, normal inspection, warm, radial pulses palpable and symetrical. Absent: pedal edema, tenderness - Back Exam Back exam: Present: normal inspection - Neurological Exam Neurological exam: Present: alert, CN II-XII intact, normal gait, oriented X3, reflexes normal, no focal deficits, strengths equal and symetr throughout. Absent: motor sensory deficit, facial droop, speech deficit - Psychiatric Psychiatric exam: Present: anxious, normal affect - Skin Skin exam: Present: dry, intact, normal color, warm. Absent: diaphoretic, erythema, pallor <Ayala Martinez E - Last Filed: 08/31/16 19:25> Procedures/tests Complete & Pending: Procedures Performed prior 72 hours Category Date Time Status EV carotid duplex imaging BI Routine Y 08/31/16 16:34 Completed EV echocardiogram Routine Y 08/31/16 16:34 Completed Date of admission: 08/30/16 15:27 Primary care physician: Cheyenne Elizalde, DRAINAGE ENGINEER Hospital course: Ms. Trejo is a 51 year old female - Time Spent with Patient Total time spent providing and/or coordinating discharge services: - Constitutional Vitals: Temp Pulse Resp BP Pulse Ox 98.3 F 79 14 137/81 98 08/31/16 15:03 08/31/16 15:03 08/31/16 15:03 08/31/16 15:03 08/31/16 15:03 - Attending Attestation I examined this patient and reviewed laboratory, imaging and all diagnostic data. My medical decision-making was reviewed with Alfredo Reveles - Resident Physician. I agree with the documented findings, disposition and treatment plan as described above.
[2016-08-31 19:25] VITALS: BP 126/63
--- NOTE | 2016-08-31 19:31 | Carotid Imaging Report ---
Carotid Duplex Patient Name:Ashley Trejo Order Number:[id number] Procedure Date:08/31/2016 Date:1965Age:51 yrs Gender:Female Lt BP:137 / 77 mmHg Rt.BP:137 / 77 mmHgHeart Rate: Location:[facility] Room #: 21 Pit Tanner:Lauren Mckinney Referring MD:Alfredo Cazares DO technical documentation specialist:Cheyenne Elizalde, INSTALLATION ENGINEER Reading MD:Austin Butterfield MD Primary Indications:Possible TIA Risk Factors Yes/No Hypertension Yes Hx of TIA Unknown Impressions: The bilateral carotid arteries are normal throughout. Findings Prior Study: No prior study available for comparison. Carotid Results Right PSV EDV Assessment Proximal CCA 109 18 Normal Mid CCA 102 16 Normal Distal CCA 106 23 Normal Bifurcation 92 20 Normal Proximal ICA 73 22 Normal Mid ICA 88 32 Normal Distal ICA 107 38 Normal ECA 86 9 Normal Vertebral Artery 67 21 Antegrade Flow Left PSV EDV Assessment Proximal CCA 89 15 Normal Mid CCA 117 28 Normal Distal CCA 131 25 Normal Bifurcation 81 23 Normal Proximal ICA 71 23 Normal Mid ICA 91 38 Normal Distal ICA 104 40 Normal ECA 85 9 Normal Vertebral Artery 56 14 Antegrade Flow Ratio's Right ICA/CCA Ratio: 1.04 ICA/CCA Values: 107/102 Left ICA/CCA Ratio: 0.89 ICA/CCA Values: 104/117 Updated by Austin Butterfield MD on 08/31/2016 7:25:30 PM electronically signed on 08/31/2016 7:25:53 PM with status of Final
== END 2016-08-31 19:45 | disposition home or self-care (01) ==
LOC: EMEROO 13:19 → 3BNU 13:19
PROVIDERS: ADMIT Nurse Practitioner Family; ATTEND Internal Medicine